=== PATIENT | female | born 1955 | race Caucasian/White ===

== ENCOUNTER → 2022-03-03 | Outpatient (CLI) | payer OTHER ==
[~2022-03-03] MED LIST: ACET500 PO; ALBU.083IS IH; ALBU90OI INH; ALBU90OI6 INH; CODACE30; DICLOFENAC; ERGO400 PO; FEXO180 PO; FISH1000 PO; GABA600 PO; LEVSOD112 PO; MONT10T PO; MULVITMINF PO; MULVITSO PO
== END ==
LOC: LAB SHORT 11:19
DX: M79.641 Pain in right hand (principal)
CPT/HCPCS: 84550

== ENCOUNTER → 2022-04-07 | Outpatient (CLI) | payer OTHER | END | disposition home or self-care (01) | LOC: LAB 12:55 → LAB SHORT 12:55 | DX: D18.01 Hemangioma of skin and subcutaneous tissue (principal) | CPT/HCPCS: 88305 ==

== ENCOUNTER 2022-05-15 11:56 | Day surgery (SDC) | payer OTHER ==
[~2022-05-15] VITALS: Ht 157.5 cm; Wt 89.6 kg
[2022-05-15] MEDS ORDERED: Robaxin750 MG PO (12:29)
[2022-05-15] MEDS ORDERED: METTREX2.5 PO (12:30)
--- NOTE | 2022-05-15 13:52 | NUR ---
05/15/22 1352 Darron Martinez 0.15ML OF EPI 1MG/ML ADDED TO 30ML OF ROPIVICAINE 0.5% TO CREATE A LOCAL SOLUTION OF ROPIVICAINE 0.5% WITH EPI 1:200,000.
== END 2022-05-15 16:06 | disposition home or self-care (01) ==
LOC: ORSCSDS 11:56
PROVIDERS: Podiatrist Foot & Ankle Surgery
PROC: 0LQN0ZZ Repair Right Lower Leg Tendon, Open Approach (ICD-10-PCS; principal; 2022-05-15 13:30)
DX: M76.71 Peroneal tendinitis, right leg (principal); E78.5 Hyperlipidemia, unspecified; G47.33 Obstructive sleep apnea (adult) (pediatric); I10 Essential (primary) hypertension; Z79.899 Other long term (current) drug therapy; K21.9 Gastro-esophageal reflux disease without esophagitis; E66.01 Morbid (severe) obesity due to excess calories; Z68.36 Body mass index [BMI] 36.0-36.9, adult
CPT/HCPCS: J0171; J0690; J1100; J2250; J2405; J2704; J2795; J3010

== ENCOUNTER → 2023-04-23 | Outpatient (CLI) | payer OTHER ==
[~2023-04-23] MED LIST changes: +METTREX2.5 PO; +Robaxin750 MG PO
== END ==
LOC: LAB SHORT 11:00 → LAB 11:00
PROVIDERS: Family Medicine
DX: G89.4 Chronic pain syndrome (principal); Z79.899 Other long term (current) drug therapy
CPT/HCPCS: G0480

== ENCOUNTER → 2024-03-13 | Outpatient (CLI) | payer OTHER | LOC: LAB SHORT 15:26 → LAB 15:26 | DX: D18.01 Hemangioma of skin and subcutaneous tissue (principal) | CPT/HCPCS: 88305 ==

== ENCOUNTER → 2024-07-19 | Outpatient (CLI) | payer OTHER | LOC: LAB SHORT 10:48 → LAB 10:48 | DX: N39.0 Urinary tract infection, site not specified (principal) | CPT/HCPCS: 87086; 87147 ==

== ENCOUNTER → 2024-10-09 | Outpatient (CLI) | payer OTHER ==
[2024-10-09 15:52] LABS: Source, Urine Clean Catch
[2024-10-09 17:17] LABS: Bacteria Rare /hpf; Red Blood Cells, Urine 0-2 /hpf (0-2); Squamous Epithelial Cells Rare /hpf (Few); White Blood Cells, Urine 0-2 /hpf (0-5)
== END ==
LOC: LAB 12:08 → LAB SHORT 12:08
PROVIDERS: Internal Medicine
DX: N30.01 Acute cystitis with hematuria (principal)
CPT/HCPCS: 81015